=== PATIENT | female | born 1955 ===

== ENCOUNTER 2023-05-30 07:13 | Inpatient (IN) | payer OTHER ==
[~2023-05-30] VITALS: Ht 152.4 cm; Wt 79.4 kg
[~2023-05-30 07:13] MED LIST: ATENOLOL50 MG PO; LEVOXYL75 MCG PO
[2023-05-31] MEDS ORDERED: INTESTINEX680 M1 PO (08:06)
[2023-05-31] MEDS ORDERED: NEURONTIN300 MG PO (08:06)
[2023-05-31] MEDS ORDERED: TRAM1TAB98 PO (08:06)
== END 2023-05-31 10:34 | disposition home or self-care (01) | DRG 331 ==
LOC: CIR.AMB 07:13 → SURH 15:28
PROVIDERS: ADMIT Surgery; ATTEND Surgery
PROC: 06BY0ZC Excision of Hemorrhoidal Plexus, Open Approach (ICD-10-PCS; 2023-05-30)
PROC: 3E0T3BZ Introduction of Anesthetic Agent into Peripheral Nerves and Plexi, Percutaneous Approach (ICD-10-PCS; 2023-05-30)
PROC: 0JQC0ZZ Repair Pelvic Region Subcutaneous Tissue and Fascia, Open Approach (ICD-10-PCS; principal; 2023-05-30 13:00)
DX: K64.2 Third degree hemorrhoids (principal); N81.6 Rectocele; Z20.822 Contact with and (suspected) exposure to COVID-19